=== PATIENT | female | born 1955 | race Caucasian/White ===

== ENCOUNTER 2019-03-11 10:53 | Inpatient (IN) ==
--- NOTE | 2019-03-11 11:07 | Emergency Department Note ---
ED Disposition Clinical Impression: Acute appendicitis Qualifiers: Acute appendicitis type: with localized peritonitis Appendicitis gangrene presence: without gangrene Appendicitis perforation presence: without perforation Appendicitis abscess presence: without abscess Qualified Code(s): K35.30 - Acute appendicitis with localized peritonitis, without perforation or gangrene Disposition: Admitted as Observation Condition on Discharge: Fair (Stable) Referrals: Ata Castaneda MD [Primary Care Provider] - Time of Disposition: 12:23 - Critical Care Critical Care Time: No Attestation: On , the high probability of a clinically significant, sudden or life threatening deterioration of the following system(s) required my full and direct attention, intervention and personal management. The time I documented below is in addition to time spent performing reported procedures but includes the following listed in this critical care notation. Medical Decision Making - Medical Records Medical records reviewed: Yes: I reviewed the patient's medical records. - [place] Inquiry Pt receiving controlled substance: No [place] was queried for this patient: No Vital Signs: 03/11/19 11:07 Temperature 97.6 F Temperature Source Oral Pulse Rate [Left Radial] 60 Respiratory Rate 20 Blood Pressure [Right Arm] 155/78 H Blood Pressure Mean [Right Arm] 103 Blood Pressure Source [Right Arm] Automatic Cuff Blood Pressure Position [Right Arm] Sitting 02 Sat by Pulse Oximetry 94 L Oxygen Delivery Method Room Air - Lab Data Lab results reviewed: Yes: I reviewed the patient's lab results. Lab Results 03/11/19 11:11: WBC 11.0 H, RBC 5.03, Hgb 14.3, Hct 44.5, MCV 88.5, MCH 28.5, MCHC 32.2, RDW 14.1, Plt Count 288, MPV 7.0 L, Neut % (Auto) 83.4 H, Lymph % (Auto) 12.1, [place] % (Auto) 4.0, Eos % (Auto) 0.4, Baso % (Auto) 0.1, Neut # (Auto) 9.2 H, Lymph # (Auto) 1.3, [place] # (Auto) 0.4, Eos # (Auto) 0.1, Baso # (Auto) 0.0 03/11/19 11:11: Sodium 138, Potassium 3.6, Chloride 100, Carbon Dioxide 29, Anion Gap 12.6, BUN 12, Creatinine 0.73, Estimated Creat Clear 88, Estimated GFR 80, Est GFR ( Amer) 97, Glucose 120 H, Calcium 9.5, Total Bilirubin 0.7, AST 20, ALT 21, Alkaline Phosphatase 132 H, Total Protein 7.9, Albumin 3.8, Globulin 4.1 H, Albumin/Globulin Ratio 0.9 L, Lipase 92 Result diagrams: 03/11/19 11:11 03/11/19 11:11 Orders (Tests/Meds): ED MEDICATIONS Generic Name Dose Route Start Last Admin Trade Name Freq PRN Reason Stop Dose Admin Sodium Chloride 1,000 mls @ 500 mls/hr 03/11/19 11:15 03/11/19 11:23 Sod Chlor 0.9% 1000ml Bag IV 04/10/19 11:14 500 mls/hr .Q2H SAY Administration Discontinued Medications Generic Name Dose Route Start Last Admin Trade Name Freq PRN Reason Stop Dose Admin Ioversol 75 ml 03/11/19 11:56 03/11/19 11:57 Rad-Optiray 350 100ml Vial IV 03/11/19 11:57 75 ml ONCE ONE Administration Protocol Ondansetron HCl 4 mg 03/11/19 11:14 03/11/19 11:23 Zofran 4mg/2ml Vial IV 03/11/19 11:15 4 mg ONCE ONE Administration Sodium Chloride 10 ml 03/11/19 11:56 03/11/19 11:57 Rad-Saline Flush 10ml Syringe IV 03/11/19 11:57 10 ml ONCE ONE Administration ORDERS Category Date Time Status Lactic Acid Stat Lab 03/11/19 11:08 Ordered Urinalysis and Microscopic Stat Lab 03/11/19 11:07 Ordered - CT Data CT Scan: Abdomen, Pelvis Time Received: 12:13 Findings Narrative: [facility] [id number] [place] [address] [place] Scan Report Signed Patient: Shu Rosa MR#: [id number] : 1955 Acct:[id number] Age/Sex: 63 / F ADM Date: 03/11/19 Loc: ER Attending Dr: Ordering Physician: Donovan Harper III, DO Date of Service: 03/11/19 Procedure(s): CT abdomen pelvis w con Accession Number(s): [id number] cc: Ata Castaneda MD; Fernando Brar MD~ PROCEDURE: CT ABDOMEN PELVIS W CON CLINICAL HISTORY: RLQ pain Right lower quadrant pain COMPARISON: No exams were available for comparison TECHNIQUE: 75 mL Optiray 350 Axial images obtained with sagittal and coronal reformats. All CT scans at the facility use one or more dose reduction, viz: automated exposure control, ma/kV adjustment per patient size (including targeted exams where dose is matched to indication, i.e. head), or iterative reconstruction technique. FINDINGS: Lung bases are clear. The liver, spleen, adrenal glands, pancreas, and kidneys have an unremarkable appearance. No radiopaque gallstones are evident. Gallbladder does not appear distended. There is an appendicoliths at the base of the appendix which measures 8 mm in diameter. There is distention of the appendix distal to the appendicoliths with the appendix measuring up to 11 mm in diameter with minimal stranding of the periappendiceal fat. There is fluid within the appendiceal lumen. These findings are consistent with appendicitis. No abscess or perforation is evident. The appendix is retrocecal. No pelvic mass or abnormal fluid collection evident within the pelvis. No acute bony anomalies are evident. 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 The degree of stenosis is difficult to evaluate. Small umbilical hernia is noted containing fat IMPRESSION: 1. 8 mm appendicoliths at the base of the appendix with dilatation of a fluid-filled appendix distal to this area consistent with appendicitis without evidence of abscess or perforation 2. 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 Dictated by: Fernando Brar MD 03/11/2019 12:14 Electronically signed by Fernando Brar MD in [place] 03/11/2019 12:14 Medical Decision Narrative: 12:20 Pt evaluated. All labs reviewed. WBC mildly elevated. CT report discussed with telephone with radiologist Dr. Brar and pt appears to have acute appendicitis with 11 mm dilated appendix, 8 mm appendicolith. No abscess. Case discussed with surgeon Dr. Fuentes who will contact OR staff to take pt to OR for his continued care. Results of work up, diagnosis and care plan discussed with pt and . They understand, agree and all questions answered. Abdominal Pain HPI - General Stated Complaint: pain in lower right abdomen Time Seen by Provider: 03/11/19 11:06 Source of Information: Patient - History of Present Illness HPI narrative: Pt is here in the ER from home via POV with c/o RLQ abdominal pain. Onset late last night while sleeping. Pt states she has been nauseated and vomited twice. No diarrhea or constipation. No fever. No GI disease history. Last colonoscopy was 10 years ago and was normal. No injury. MD complaint: abdominal pain - Related Data Home Medications Medication Instructions Recorded Confirmed Calcium Citrate 1,200 mg PO DAILY 03/11/19 03/11/19 Cholecalciferol (Vitamin D3) 1,000 unit PO DAILY 03/11/19 03/11/19 [Vitamin D3 1,000 Unit Cap] Glucosamine/MSM/Chondroitin A 1 each PO DAILY 03/11/19 03/11/19 [Glucosamine Chondroit MSM Tab] hydroCHLOROthiazide [HCTZ 25mg 25 mg PO DAILY 03/11/19 03/11/19 tab] Allergies Allergy/AdvReac Type Severity Reaction Status Date / Time NO KNOWN ALLERGIES Allergy Uncoded 06/13/17 14:50 [facility] History - Hepatitis A Screen Attestation statement:: This patient has been screened for Hepatitis A risk factors. I have reviewed the patient's past medical history: Yes ROS Obtained: Yes All systems reviewed & no additional complaints - Constitutional Constitutional: Reports system reviewed and no additional complaints, except as docu - Eyes Eyes: Reports system reviewed and no additional complaints, except as docu - ENT Ears, Nose, Mouth, and Throat: Reports system reviewed and no additional compla ints, except as docu - Cardiovascular Cardiovascular: Reports system reviewed and no additional complaints, except as docu - Respiratory Respiratory: Yes system reviewed and no additional complaints, except as docu - Gastrointestinal Gastrointestingal: Reports: system reviewed and no additional complaints, except as docu, as per HPI, abdominal pain (RLQ), nausea, vomiting (twice last night.). Denies: constipation, diarrhea - Genitourinary Female Genitourinary: Reports system reviewed and no additional complaints, except as docu - Musculoskeletal Musculoskeletal: Reports system reviewed and no additional complaints, except as docu - Integumentary/Breasts Skin/Breast: Reports system reviewed and no additional complaints, except as docu - Neurologic Neurologic: Reports system reviewed and no additional complaints, except as docu - Endocrine Endocrine: Reports system reviewed and no additional complaints, except as docu - Hematologic/Lymphatic Henatologic/Lymphatic: Reports system reviewed and no additional complaints, except as docu - Allergic/Immunologic Allergic/Immunologic: Reports system reviewed and no additional complaints, except as docu Physical Exam - General General appearance: alert, in no apparent distress - Head Head exam: atraumatic, normocephalic, normal inspection - Eye Eye exam: Present: normal appearance, PERRL, EOMI - ENT ENT exam: Present: mucous membranes moist - Neck Neck exam: Present: trachea midline - Chest Chest inspection: Present: normal inspection, symmetric chest wall rise - Respiratory Respiratory exam: Present: normal lung sounds bilaterally. Absent: respiratory distress - Cardiovascular Cardiovascular exam: Present: regular rate, normal heart sounds. Absent: systolic murmur, diastolic murmur - Abdominal Exam Abdominal exam: Present: soft, tenderness (RLQ), rebound (RLQ), hypoactive bowel sounds, tenderness at McBurney's Point. Absent: rigidity, Guerra's sign Abdominal tenderness: Present: RLQ - Extremities Exam Extremities exam: Present: normal inspection, full ROM - Back Exam Back exam: Present: normal inspection. Absent: tenderness, CVA tenderness (R), CVA tenderness (L) - Neurological Exam Neurological exam: Present: alert, oriented X3, CN II-XII intact - Psychiatric Psychiatric exam: Present: normal affect, normal mood - Skin Skin exam: Present: warm, dry, intact, normal color. Absent: rash
[2019-03-11 11:21] LABS: Basophils % 0.1 % (0.1-2.0); Eosinophils # 0.1 K/mm3 (0.0-0.4); Eosinophils % 0.4 % (0.1-12.0); Hematocrit 44.5 % (37.0-47.0); Hemoglobin 14.3 g/dL (12.2-16.2); Lymphocytes # 1.3 K/mm3 (0.7-4.5); Lymphocytes % 12.1 % (10-50); Mean Corpuscular HGB Conc 32.2 g/dL (31.8-35.4); Mean Corpuscular Volume 88.5 fl (81-99); Monocytes # 0.4 K/mm3 (0.1-1.0); Neutrophils # 9.2 K/mm3 (1.8-7.8); Neutrophils % 83.4 % (37.0-80.0); Platelet Count 288 K/mm3 (142-424); Red Blood Count 5.03 M/mm3 (4.20-5.40); Red Cell Distribution Width 14.1 % (11.5-17.5)
[2019-03-11 11:32] LABS: Albumin Level 3.8 gm/dL (3.4-5.0); Albumin/Globulin Ratio 0.9 (1.1-1.8); Anion Gap 12.6 mEq/L (5-15); Bilirubin,Total 0.7 mg/dL (0.2-1.0); Calcium 9.5 mg/dL (8.5-10.1); Globulin 4.1 gm/dl (1.3-3.2); Total Protein,Serum 7.9 gm/dL (6.4-8.2)
--- NOTE | 2019-03-11 12:52 | Progress Note ---
[facility] Anesthesia Checklist - Patient Identification Patient Identification: Arm Band, Verbal (Name & ) - Structural Data Admitted From: Home Planned Operative Procedure/s: Laparoscopic appendectomy Consent for Planned Operative Procedure(s) Verified: Yes Verified Documents: Surgical Consent, History and Physical - NPO Status Verified Time NPO: 09:00 (black coffee) - Chart Verification Results Verified: CBC, BMP - Additional verifications Anesthesia Reactions: No - Airway Assessment C-Spine Mobility Assessed: Yes TMJ Mobility Assessed: Yes Dentition: Good Dentition - Neurological Assessment Level of Consciousness: Awake, Alert, Appropriate, Follows Commands Hx Seizures: No Numbness or tingling in extremities: No - Anesthesia Plan Anesthesia Risk discussed: Yes Anesthesia Plan: Verified ASA Class: II Anesthesia Type: General [facility] History I have reviewed the patient's past medical history: Yes Medical History: Reports:: Cancer (Breast CA), Hypertension Denies:: Diabetes Mellitus Type 1, Diabetes Mellitus Type 2 *Have you ever received a pneumonia vaccine?: No *Have you received a flu vaccine this season?: No Comment:: obesity Anesthesia experience/problems:: No complications Laterality Cases: Left: Mastectomy, Right: Arthroscopy Shoulder Other Surgeries: Yes: (x2) Amputation: No Fractures: No - *Social History Smoking Status: Never smoker Alcohol Intake: current Alcohol Intake Frequency:: 0-2 drinks per day Substance Use Type: denies use *Occupational Status:: retired *Travel in the last 8 weeks: None Family Hx:: Other (NA)
--- NOTE | 2019-03-11 14:20 | Operative Note ---
Date of procedure: 03/11/19 Pre-op Diagnosis:: Appendicitis Post-op Diagnosis:: Suppurative appendicitis Procedure performed:: Laparoscopic appendectomy Surgeon:: Dayron Fuentes MD FISH CHECKER:: Jeffry Koroma Anesthesia: DAVID Estimated blood loss (mL): 15 Operative findings:: Severe inflammation with suppurative changes No sign of definitive perforation Operative note:: After informed consent was obtained the patient was taken to the operating room and placed in the supine position. General anesthesia was induced and her abd omen was prepped and draped in a sterile fashion. After infiltration local anesthetic a supraumbilical incision was made. A Veress needle was placed in position. The abdomen was insufflated. A 12 mm optical trocar was placed in position. Under direct visualization a 5 mm trocar was placed in the suprapubic position and an additional 5 mm trocar was placed in the left lower quadrant. The appendix was carefully elevated. Severe inflammation with surrounding suppurative changes were noted. No obvious perforation was seen. A window was made in the mesoappendix and and Endopath Flex 45 stapler was utilized to transect the appendix. The mesoappendix was taken down with harmonic missy. The appendix was placed in a retrieval bag and removed through the supraumbilical trocar site. The right lower quadrant was thoroughly irrigated. No active bleeding or sign of injury was noted. The staple margin appeared to be intact with no sign of bleeding or complication. Pneumoperitoneum was released as the trocars were removed. Fascia at the supraumbilical trocar site was reapproximated with interrupted 0 Ethibond. All wounds were irrigated and skin was closed with interrupted 4-0 Monocryl. Dressings were applied and the patient was transferred to recovery in stable condition. Condition: stable Disposition: PACU Specimens:: Appendix Complications:: No immediate
--- NOTE | 2019-03-11 14:24 | Progress Note ---
[facility] Anesthesia Record Part I Intake, IV Amount: 900 Estimated blood loss (mL): 20 Urine output (mL): 500 Blood Products used (#): none Blood Pressure: 161/96 SaO2: 96 Pulse Rate: 81 Respiratory Rate: 14 Temperature: 97.1 F Patient is:: Awake, Nasal O2, Stable Stable to PACU at:: 14:20
--- NOTE | 2019-03-11 14:24 | Progress Note ---
[facility] Anesthesia Record Part II Discharge Time: 14:50 Destination: Medical Surgical Department PACU nurse assessment reviewed?: Yes Patient Condition:: Good Anesthesia Complications:: None Swallowing reflex intact?: Yes Cyanosis?: No
[2019-03-12 07:20] LABS: Eosinophils % 0.2 % (0.1-12.0); Hematocrit 39.2 % (37.0-47.0); Lymphocytes # 1.1 K/mm3 (0.7-4.5); Lymphocytes % 10.1 % (10-50); Mean Corpuscular HGB Conc 31.6 g/dL (31.8-35.4); Mean Corpuscular Volume 89.6 fl (81-99); Mean Platelet Volume 7.3 fl (7.4-10.4); Monocytes # 0.6 K/mm3 (0.1-1.0); Neutrophils # 9.4 K/mm3 (1.8-7.8); Neutrophils % 84.7 % (37.0-80.0); Platelet Count 247 K/mm3 (142-424); Red Blood Count 4.37 M/mm3 (4.20-5.40); Red Cell Distribution Width 14.1 % (11.5-17.5); White Blood Count 11.1 K/mm3 (4.8-10.8)
[2019-03-12 07:22] LABS: Anion Gap 10.5 mEq/L (5-15); Calcium 8.7 mg/dL (8.5-10.1)
--- NOTE | 2019-03-12 07:32 | Pharmacy Consult Notes ---
[facility] Pharmacy VTE Monitoring - Patient Demographics Admission date: 03/11/19 Report Date: 03/12/19 Time: 07:32 Allergies/Adverse Reactions: Patient Allergies No Known Allergies Allergy (Verified 03/11/19 15:22) Height: 1.68 m Weight: 99.155 kg Patient Problems: Current Active Problems Acute appendicitis (Acute) - VTE Risk Labs: VTE Related Lab Results Hgb 14.3 g/dL (12.2-16.2) 03/11/19 11:11 Hct 44.5 % (37.0-47.0) 03/11/19 11:11 Plt Count 288 K/mm3 (142-424) 03/11/19 11:11 BUN 9 mg/dL (7-18) 03/12/19 06:26 Creatinine 0.73 mg/dL (0.55-1.02) 03/12/19 06:26 Estimated Creat Clear 89 mL/min (50-200) 03/12/19 06:26 VTE Score: 5 VTE Risk Level: Low Risk - Prophylaxis VTE Prophylaxis Ordered?: Yes Types of VTE Prophylaxis: IPCS Thigh High Location of Applied Device: Bilateral Lower Extremeties - VTE Diagnosis Confirmed Treatment or plan recommended: Continue Current Treatment
[2019-03-12 07:50] LABS: Hemoglobin 12.5 g/dL (12.2-16.2)
--- NOTE | 2019-03-12 08:32 | Progress Note ---
Subjective Patient reports: feels better Exam Vital signs and Labs for Last 24 Hours: Temp Pulse Resp BP Pulse Ox 97.6 F 52 L 16 105/54 L 95 03/12/19 04:00 03/12/19 04:00 03/12/19 04:00 03/12/19 04:00 03/12/19 04:00 Laboratory Results - last 24 hr 03/11/19 11:11: WBC 11.0 H, RBC 5.03, Hgb 14.3, Hct 44.5, MCV 88.5, MCH 28.5, MCHC 32.2, RDW 14.1, Plt Count 288, MPV 7.0 L, Neut % (Auto) 83.4 H, Lymph % (A uto) 12.1, [place] % (Auto) 4.0, Eos % (Auto) 0.4, Baso % (Auto) 0.1, Neut # (Auto) 9.2 H, Lymph # (Auto) 1.3, [place] # (Auto) 0.4, Eos # (Auto) 0.1, Baso # (Auto) 0.0 03/11/19 11:11: Sodium 138, Potassium 3.6, Chloride 100, Carbon Dioxide 29, Anion Gap 12.6, BUN 12, Creatinine 0.73, Estimated Creat Clear 88, Estimated GFR 80, Est GFR ( Amer) 97, Glucose 120 H, Calcium 9.5, Total Bilirubin 0.7, AST 20, ALT 21, Alkaline Phosphatase 132 H, Total Protein 7.9, Albumin 3.8, Globulin 4.1 H, Albumin/Globulin Ratio 0.9 L, Lipase 92 03/11/19 13:10: Urine Color Yellow, Urine Appearance Clear, Urine pH 7.0, Ur Specific [place] 1.010, Urine Protein Negative, Urine Glucose (UA) Negative, Urine Ketones Trace, Urine Blood 1+, Urine Nitrate Negative, Urine Bilirubin Negative, Urine Urobilinogen 0.2, Ur Leukocyte Esterase Negative, Urine RBC 3-5, Urine WBC Occasional, Ur Squamous Epith Cells 3-5, Urine Bacteria Trace 03/11/19 14:51: Lactate 1.0 03/12/19 06:26: WBC 11.1 H, RBC 4.37, Hgb 12.5 D, Hct 39.2, MCV 89.6, MCH 28.3, MCHC 31.6 L, RDW 14.1, Plt Count 247, MPV 7.3 L, Neut % (Auto) 84.7 H, Lymph % (Auto) 10.1, [place] % (Auto) 5.0, Eos % (Auto) 0.2, Baso % (Auto) 0.0 L, Neut # (Auto) 9.4 H, Lymph # (Auto) 1.1, [place] # (Auto) 0.6, Eos # (Auto) 0.0, Baso # (Auto) 0.0 03/12/19 06:26: Sodium 138, Potassium 3.5, Chloride 102, Carbon Dioxide 29, Anion Gap 10.5, BUN 9, Creatinine 0.73, Estimated Creat Clear 89, Estimated GFR 80, Est GFR ( Amer) 97, Glucose 124 H, Calcium 8.7 I & O for Last 24 hours: Intake & Output 03/09/19 03/10/19 03/11/19 03/12/19 11:59 11:59 11:59 11:59 Intake Total 2071 Balance 2071 Weight 215 lb 5.998 oz 218 lb 9.6 oz - Constitutional no acute distress - *Routine Cardiovascular Exam Present: RRR - *Routine Abdominal Exam Present: soft Comments: Dressings in place. No spreading cellulitis. Progress Note: A&P (1) Suppurative appendicitis Status: Acute Assessment and plan: Overall, doing well status post laparoscopic appendectomy for suppurative appendicitis. Continue IV antibiotics for now Advance diet Likely discharge home tomorrow with completion of a short course of antibiotics Current Visit: Yes
[2019-03-13 07:13] LABS: Basophils % 0.3 % (0.1-2.0); Eosinophils # 0.1 K/mm3 (0.0-0.4); Eosinophils % 1.1 % (0.1-12.0); Hematocrit 38.3 % (37.0-47.0); Hemoglobin 11.8 g/dL (12.2-16.2); Lymphocytes # 2.8 K/mm3 (0.7-4.5); Lymphocytes % 33.2 % (10-50); Mean Corpuscular HGB Conc 30.9 g/dL (31.8-35.4); Mean Corpuscular Volume 91.6 fl (81-99); Mean Platelet Volume 7.1 fl (7.4-10.4); Monocytes # 0.5 K/mm3 (0.1-1.0); Monocytes % 5.6 % (1.7-9.3); Neutrophils # 5.1 K/mm3 (1.8-7.8); Neutrophils % 59.9 % (37.0-80.0); Platelet Count 217 K/mm3 (142-424); Red Blood Count 4.18 M/mm3 (4.20-5.40); Red Cell Distribution Width 14.4 % (11.5-17.5); White Blood Count 8.5 K/mm3 (4.8-10.8)
--- NOTE | 2019-03-13 08:28 | Progress Note ---
Subjective Patient reports: feels better Exam Vital signs and Labs for Last 24 Hours: Temp Pulse Resp BP Pulse Ox 97.9 F 52 L 18 126/63 98 03/13/19 08:00 03/13/19 08:00 03/13/19 08:00 03/13/19 08:00 03/13/19 08:00 Laboratory Results - last 24 hr 03/13/19 06:40: WBC 8.5, RBC 4.18 L, Hgb 11.8 L, Hct 38.3, MCV 91.6, MCH 28.3, MCHC 30.9 L, RDW 14.4, Plt Count 217, MPV 7.1 L, Neut % (Auto) 59.9, Lymph % (Auto) 33.2, [place] % (Auto) 5.6, Eos % (Auto) 1.1, Baso % (Auto) 0.3, Neut # (Auto) 5.1, Lymph # (Auto) 2.8, [place] # (Auto) 0.5, Eos # (Auto) 0.1, Baso # (Auto) 0.0 I & O for Last 24 hours: Intake & Output 03/10/19 03/11/19 03/12/19 03/13/19 11:59 11:59 11:59 11:59 Intake Total 2071 3209 / 3209 Balance 2071 3209 / 3209 Weight 215 lb 5.998 oz 218 lb 9.6 oz 218 lb 9 oz - Constitutional no acute distress - *Routine Respiratory Exam Absent: respiratory distress - *Routine Cardiovascular Exam Present: RRR - *Routine Abdominal Exam Present: soft Comments: Incisions clean, dry, and intact. No erythema. Progress Note: A&P (1) Suppurative appendicitis Status: Acute Assessment and plan: Overall, doing well status post laparoscopic appendectomy. Discharge home with outpatient follow-up Complete short course of antibiotics secondary to suppurative changes noted intraoperatively Current Visit: Yes
--- NOTE | 2019-03-13 08:34 | Discharge Summary ---
General - General Admission date:: 03/11/19 Discharge date: 03/13/19 HPI HPI: This is a 63-year-old female who presented with right lower quadrant abdominal pain. Evaluation in emergency department included a CT scan that showed changes consistent with appendicitis. The surgical service was consulted for evaluation and management. Hospital Course Hospital Course: The patient underwent laparoscopic appendectomy. Please see operative report for detail. Suppurative changes were noted. No obvious perforation was seen. Postoperatively, she was admitted for ongoing IV antibiotics and serial abdominal exams secondary to the suppurative nature of her appendicitis. She convalesced well and remained afebrile with stable normal vital signs. On the morning of postoperative day 3 she was deemed appropriate for discharge home with close outpatient follow-up. A short course of Augmentin was ordered secondary to the suppurative nature of her appendicitis. Objective Vital signs: Temp Pulse Resp BP Pulse Ox 97.9 F 52 L 18 126/63 98 03/13/19 08:00 03/13/19 08:00 03/13/19 08:00 03/13/19 08:00 03/13/19 08:00 no acute distress - *Routine HEENT Exam Head: Present: normocephalic, atraumatic - *Routine Neck Exam Present: full ROM - Routine Chest/Breast/Axilla Exam Chest wall: Absent: tenderness - *Routine Respiratory Exam Absent: respiratory distress - *Routine Cardiovascular Exam Present: RRR - *Routine Abdominal Exam Present: soft - *Routine Extremities Exam Present: full ROM - Routine Back/Spine/Pelvis Exam Back/Spine: Present: full ROM - *Routine Skin Exam Absent: cyanosis, erythema - *Routine Neurological Exam Present: alert, oriented X3 - Routine Psychiatric Exam Present: normal affect Results Labs on day of discharge: Labs from last 24 hours 03/13/19 06:40 WBC 8.5 RBC 4.18 L Hgb 11.8 L Hct 38.3 MCV 91.6 MCH 28.3 MCHC 30.9 L RDW 14.4 Plt Count 217 MPV 7.1 L Neut % (Auto) 59.9 Lymph % (Auto) 33.2 [place] % (Auto) 5.6 Eos % (Auto) 1.1 Baso % (Auto) 0.3 Neut # (Auto) 5.1 Lymph # (Auto) 2.8 [place] # (Auto) 0.5 Eos # (Auto) 0.1 Baso # (Auto) 0.0 DS: Diagnosis - Discharge Diagnosis (1) Suppurative appendicitis Status: Acute Discharge Plan - Patient Discharge Instructions ACTIVITY: No heavy lifting DIET: advance to your usual diet Patient Instructions: Appendicitis, DI for an Appendectomy, DI for Surgical Site Infection, Appendectomy -- Laparoscopic Surgery - Follow up Plan Follow up with: Ata Castaneda MD [Primary Care Provider] - Dayron Fuentes MD [Staff Physician] - (1-2 weeks) Disposition: Home, Self-Long Term Medications: Home Medications Medication Instructions Recorded Confirmed Type Calcium Citrate 600 mg PO BID 03/11/19 03/11/19 History Cholecalciferol (Vitamin D3) 1,000 unit PO DAILY 03/11/19 03/11/19 History [Vitamin D3 1,000 Unit Cap] Glucosamine/MSM/Chondroitin A 0.5 tab PO BID 03/11/19 03/11/19 History [Glucosamine Chondroit MSM Tab] hydroCHLOROthiazide [HCTZ 25mg 25 mg PO DAILY 03/11/19 03/11/19 History tab] Amoxicillin/Potassium Clav 1 tab PO Q12H #14 tab 03/13/19 Rx [Augmentin 875-125 Tablet] Prescriptions/Medication Reconciliation: New Amoxicillin/Potassium Clav [Augmentin 875-125 Tablet] 1 tab PO Q12H #14 tab Continued Cholecalciferol (Vitamin D3) [Vitamin D3 1,000 Unit Cap] 1,000 unit PO DAILY hydroCHLOROthiazide [HCTZ 25mg tab] 25 mg PO DAILY Glucosamine/MSM/Chondroitin A [Glucosamine Chondroit MSM Tab] 0.5 tab PO BID Calcium Citrate 600 mg PO BID - Problem Reconciliation Problems Reviewed?: Yes
== END 2019-03-13 09:49 | disposition home or self-care (01) | DRG 343 ==
LOC: ER 10:53 → 2ND 13:04 → OR 13:04 → OBSVTOIN 15:22
PROVIDERS: ADMIT Surgery; ATTEND Surgery
DX: K35.890 Other acute appendicitis without perforation or gangrene
CPT/HCPCS: 36415; 74177; 80048; 80053; 81001; 83605; 83690; 85025; 96365; 96375; 99284; J0330; J2405; J2543; J2710; Q9967

== ENCOUNTER → 2019-05-07 14:41 | Outpatient (POV) | payer OTHER, SELFPAY | PROVIDERS: Visit Provider Dermatology | DX: Z00.00 Encounter for general adult medical examination without abnormal findings (principal) ==

== ENCOUNTER → 2020-01-28 10:49 | Outpatient (POV) | payer MEDICARE, OTHER, SELFPAY | PROVIDERS: PCP Internal Medicine Adolescent Medicine; Visit Provider Dermatology | DX: Z00.00 Encounter for general adult medical examination without abnormal findings (principal) ==

== ENCOUNTER 2020-02-03 11:00 | Outpatient (RCR) | payer MEDICARE, OTHER, SELFPAY ==
--- NOTE | 2020-01-13 16:41 | HMH.PTOPWND ---
Rehab Outpt Wound Evaluation Rehab OP Wound Evaluation Start: 01/06/20 17:46 Freq: Status: Active Protocol: Document 01/13/20 16:35 TENZIN (Rec: 01/13/20 16:40 PHORNE [id number]) Electronically Signed By Alok Ayala, PT 01/13/20 16:35 Subjective/History History History Pt is 64 yowf who presents with c/o B LE edema, L worse than R, with unknown itchy rash on B legs, arms, and abdomen. She reports she thinks her rash is due to adverse reaction to lasix, but has no definitive diagnosis at this time. She reports no pain with the edema and only mild tenderness to palpation. Subjective Subjective Pt with no c/o pain this date. 2+ pitting edema to L lower leg noted. Lymphedema Eval Classification of Lymphedema Secondary Lymphedema Yes Stemmer's sign Stemmer's Sign no Stage of Lymphedema Lymphedema stages Stage I (Pitting edema, reduces w/ elevation, no fibrosis) Skin Changes Dry Skin Yes Redness Yes Blisters Yes Wounds Yes Discoloration of Skin Yes Other Changes Yes Affected Extremities Areas Affected by Lymphedema/Edema Right Lower Extremity,Left Lower Extremity Manual Lymphatic Drainage Treatment Area MLD Treatment Area Right Lower Extremity,Left Lower Extremity Wound Problems/Impairments Impairments Problems/Impairmments Palpation Tenderness,Increased Edema,Lymphedema Present, Wound Care Needs,Subjective C/ O Pain,Impaired Self Care/Self Management Prognosis Rehab Potential Good Clinical Impression Consistent with Diagnosis Yes Short Term Goals Number of Weeks 4 Decreased Palpation Tenderness Yes: to min Decrease Edema Yes Patient to Understand Lymphedema Yes Treatment and Exercises Decrease Girth Measurments by (cm) Yes: by 10 cm Hot Header Operator Goals Number of Weeks 8 Decreased Palpation Tenderness Yes: to none Decrease Lymphedema Yes Patient to be Ind w/ HEP Yes Patient to be Ind w/ [place] Yes Compression Garments Patient to Adhere Lymphedema Pr
== END 2020-02-03 11:05 | disposition home or self-care (01) ==
LOC: PT 11:00
PROVIDERS: Visit Provider Internal Medicine Adolescent Medicine
DX: I89.0 Lymphedema, not elsewhere classified (principal)
CPT/HCPCS: 97140; 97162; 97760

== ENCOUNTER → 2020-02-10 10:43 | Outpatient (CLI) | payer MEDICARE, OTHER, SELFPAY ==
--- NOTE | 2020-02-10 10:48 | XR_ITS ---
PROCEDURE: XR FOOT WT BEARING RT 3V CLINICAL INDICATION: pain COMPARISON: No exams were available for comparison FINDINGS: No fracture or dislocation. No lytic or blastic change. There is normal mineralization. The joint spaces are well-preserved. No significant degenerative/arthritic changes. No erosive changes evident. Other findings:There is a small calcaneal spur incidentally noted. IMPRESSION: No acute findings. Dictated by: Fernando Brar MD 02/10/2020 12:59 Fernando Brar MD in [place] 02/10/2020 12:59
--- NOTE | 2020-02-10 10:48 | XR_ITS ---
PROCEDURE: XR FOOT WT BEARING LT 3V CLINICAL INDICATION: pain COMPARISON: No exams were available for comparison FINDINGS: No fracture or dislocation. No lytic or blastic change. There is normal mineralization. There is pes planus with osteoarthritic change at the talonavicular joint with bony hypertrophy dorsally. Other findings:None. 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
--- NOTE | 2020-02-10 10:48 | XR_ITS ---
PROCEDURE: XR ANKLE WT BEARING RT MIN 3V CLINICAL INDICATION: pain COMPARISON: No exams were available for comparison FINDINGS: No fracture, dislocation, lytic change, or blastic change evident. No significant degenerative change IMPRESSION: No acute findings. Dictated by: Fernando Brar MD 02/10/2020 12:57 Fernando Brar MD in [place] 02/10/2020 12:57
--- NOTE | 2020-02-10 10:48 | XR_ITS ---
PROCEDURE: XR ANKLE WT BEARING LT MIN 3V CLINICAL INDICATION: pain COMPARISON: No exams were available for comparison FINDINGS: No fracture or dislocation is evident. There is a lucent defect with sclerotic margins involving the sub articular region the talar dome medially measuring 6 mm. There is some hyperostosis of the distal fibula medially at the interosseous ligament region. IMPRESSION: Lucency of the talar dome medially which may be due to an osteochondral defect otherwise negative Dictated by: Fernando Brar MD 02/10/2020 12:58 Fernando Brar MD in [place] 02/10/2020 12:58
== END ==
PROVIDERS: PCP Internal Medicine Adolescent Medicine; Visit Provider Podiatrist
DX: M79.672 Pain in left foot (principal); M79.671 Pain in right foot; M25.572 Pain in left ankle and joints of left foot; M25.571 Pain in right ankle and joints of right foot
CPT/HCPCS: 73610; 73630

== ENCOUNTER → 2020-03-05 09:56 | Outpatient (CLI) | payer MEDICARE, OTHER, SELFPAY ==
[2020-03-05 10:43] LABS: Basophils % 0.4 % (0.1-2.0); Eosinophils # 0.2 K/mm3 (0.0-0.4); Eosinophils % 3.4 % (0.1-12.0); Hematocrit 42.9 % (37.0-47.0); Hemoglobin 14.2 g/dL (12.2-16.2); Lymphocytes # 1.7 K/mm3 (0.7-4.5); Lymphocytes % 23.8 % (10-50); Mean Corpuscular HGB Conc 33.1 g/dL (31.8-35.4); Mean Corpuscular Hemoglobin 29.5 pg (27.0-31.2); Mean Corpuscular Volume 89.4 fl (81-99); Mean Platelet Volume 7.6 fl (7.4-10.4); Monocytes # 0.3 K/mm3 (0.1-1.0); Monocytes % 4.2 % (1.7-9.3); Neutrophils # 4.8 K/mm3 (1.8-7.8); Neutrophils % 68.2 % (37.0-80.0); Platelet Count 274 K/mm3 (142-424); Red Cell Distribution Width 13.9 % (11.5-17.5)
[2020-03-05 11:04] LABS: Chloride 103 mmol/L (98-107); Potassium 4.1 mmoL/L (3.5-5.1); Sodium 140 mmol/L (136-145)
[2020-03-05 11:07] LABS: Alanine Aminotransferase 18 U/L (12-78); Albumin Level 3.9 g/dl (3.5-5.0); Albumin/Globulin Ratio 1.3 (1.1-1.8); Alkaline Phosphatase 118 U/L (38-126); Anion Gap 12.1 mEq/L (5-15); Aspartate Amino Transferase 29 U/L (14-36); Bilirubin,Total 0.6 mg/dl (0.2-1.3); Blood Urea Nitrogen 12 mg/dl (7-17); Carbon Dioxide 29 mmol/L (22.0-30.0); Estimated Glomerular Filt Rate 100 ml/min (>60); GFR (African American) 121 ML/MIN (>60); Globulin 3.1 g/dL (1.3-3.2)
[2020-03-05 11:08] LABS: Calcium 9.7 mg/dl (8.4-10.2); Glucose 118 mg/dl (74-100)
[2020-03-05 11:37] LABS: Thyroid Stimulating Hormone 1.47 uIU/mL (0.465-4.68)
== END ==
PROVIDERS: Visit Provider Internal Medicine Adolescent Medicine
DX: I10 Essential (primary) hypertension (principal); Z79.891 Long term (current) use of opiate analgesic
CPT/HCPCS: 36415; 80053; 83036; 84443; 85025

== ENCOUNTER 2020-03-05 11:00 | Outpatient (RCR) | payer MEDICARE, OTHER, SELFPAY ==
--- NOTE | 2020-01-30 15:57 | HMH.PTOPWND ---
Rehab Outpt Wound Evaluation Rehab OP Wound Evaluation Start: 01/30/20 15:50 Freq: Status: Active Protocol: Document 01/30/20 15:50 TENZIN (Rec: 01/30/20 15:56 PHORNE [id number]) Electronically Signed By Alok Ayala, PT 01/30/20 15:50 Subjective/History History History Pt is 65 yowf who presents with c/o increased R UE edema x ~ 1 yr. She reports no c/o pain, but intermittent feeling of pins and needles. SHe has significant PMH of B mastectomy with B SLNB, L lumpectomy, R humerus fx with IMN, , and lap APPY. She has been treated for LE edema with good results thus far. Subjective Subjective Pt with no current c/o pain. Lymphedema Eval Classification of Lymphedema Secondary Lymphedema Yes: multiple surgeries Stemmer's sign Stemmer's Sign no Stage of Lymphedema Lymphedema stages Stage II (Pitting edema, increased fibrosis w/ decreased pitting) Skin Changes Dry Skin Yes Redness Yes Other Changes Yes Pain Scale Pain Scale (0-10) 0 Manual Lymphatic Drainage Treatment Area MLD Treatment Area Right Upper Extremity,Abdomen, Right Axilla Wound Problems/Impairments Impairments Problems/Impairmments Impaired Endurance,Impaired Recreational Activities, Increased Edema,Lymphedema Present,Subjective C/O Pain, Impaired Self Care/Self Management Prognosis Rehab Potential Good Clinical Impression Consistent with Diagnosis Yes Short Term Goals Number of Weeks 4 Decrease Lymphedema Yes Patient to Understand Lymphedema Yes Treatment and Exercises Decrease Girth Measurments by (cm) Yes: by 10 cm Alf Goals Number of Weeks 8 Decrease Lymphedema Yes Patient to be Ind w/ HEP Yes Patient to be Ind w/ [place] Yes Compression Garments Patient to Adhere Lymphedema Precautions Yes Decrease Girth Measurments by (cm) Yes: by 20 cm Outpatient Therapy Plan of Care Treatment Plan May Include Therapeutic Exercise Including Home Yes Exercise Program Manual Therapy Techniques Yes Neuromuscular Re-education Yes Therapeutic
== END 2020-03-05 11:49 | disposition home or self-care (01) ==
LOC: PT 11:00
PROVIDERS: PCP Internal Medicine Adolescent Medicine; Visit Provider Internal Medicine Adolescent Medicine
DX: M79.601 Pain in right arm (principal); I89.0 Lymphedema, not elsewhere classified
CPT/HCPCS: 97110; 97140; 97162

== ENCOUNTER → 2020-07-07 11:21 | Outpatient (CLI) | payer MEDICARE, OTHER, SELFPAY ==
[2020-07-07 11:56] LABS: Basophils % 0.6 % (0.1-2.0); Eosinophils # 0.1 K/mm3 (0.0-0.4); Eosinophils % 1.9 % (0.1-12.0); Hematocrit 46.9 % (37.0-47.0); Hemoglobin 15.1 g/dL (12.2-16.2); Lymphocytes # 1.7 K/mm3 (0.7-4.5); Lymphocytes % 26.7 % (10-50); Mean Corpuscular HGB Conc 32.2 g/dL (31.8-35.4); Mean Corpuscular Hemoglobin 28.6 pg (27.0-31.2); Mean Corpuscular Volume 88.8 fl (81-99); Mean Platelet Volume 7.2 fl (7.4-10.4); Monocytes # 0.3 K/mm3 (0.1-1.0); Monocytes % 4.6 % (1.7-9.3); Neutrophils # 4.2 K/mm3 (1.8-7.8); Neutrophils % 66.2 % (37.0-80.0); Platelet Count 285 K/mm3 (142-424); Red Blood Count 5.28 M/mm3 (4.20-5.40); Red Cell Distribution Width 14.7 % (11.5-17.5); White Blood Count 6.3 K/mm3 (4.8-10.8)
[2020-07-07 12:43] LABS: Hemoglobin A1C 5.6 % (4.0-6.0)
[2020-07-07 13:29] LABS: Chloride 101 mmol/L (98-107); Potassium 4.4 mmoL/L (3.5-5.1); Sodium 137 mmol/L (136-145)
[2020-07-07 13:31] LABS: Alanine Aminotransferase 17 U/L (12-78); Aspartate Amino Transferase 26 U/L (14-36); Blood Urea Nitrogen 16 mg/dl (7-17); Estimated Glomerular Filt Rate 72 ml/min (>60); GFR (African American) 87 ML/MIN (>60)
[2020-07-07 13:32] LABS: Albumin Level 4.4 g/dl (3.5-5.0); Albumin/Globulin Ratio 1.3 (1.1-1.8); Alkaline Phosphatase 136 U/L (38-126); Anion Gap 11.4 mEq/L (5-15); Bilirubin,Total 0.6 mg/dl (0.2-1.3); Calcium 10.3 mg/dl (8.4-10.2); Carbon Dioxide 29 mmol/L (22.0-30.0); Chol/HDL Ratio 2.3 (1-3.5); Cholesterol 185 mg/dl (140-200); Globulin 3.4 g/dL (1.3-3.2); Glucose 108 mg/dl (74-100); HDL Cholesterol 79 mg/dl (40-60); Total Protein,Serum 7.8 g/dl (6.3-8.2); Triglycerides 114 mg/dl (30-150); VLDL Cholesterol 23 mg/dL (0-40)
[2020-07-07 13:44] LABS: Direct LDL Cholesterol 72.81 mg/dL (100-129)
== END ==
PROVIDERS: Visit Provider Internal Medicine Adolescent Medicine
DX: I10 Essential (primary) hypertension (principal); R73.03 Prediabetes
CPT/HCPCS: 36415; 80053; 80061; 83036; 85025

== ENCOUNTER 2021-06-14 09:28 | Emergency (ER) | payer MEDICARE, OTHER, SELFPAY ==
[2021-06-14 10:30] VITALS: BP 136/79; PULSE 86; RESP 18; TEMP 37.1; O2SAT 96; BMI 36.4
--- NOTE | 2021-06-14 10:45 | XR_ITS ---
PROCEDURE: XR CHEST 2V CLINICAL HISTORY: CHEST CONGESTION AND COUGH COMPARISON: No exams were available for comparison FINDINGS: The cardiomediastinal silhouette and pulmonary vascularity are within normal limits. The lungs are clear without infiltrates, suspicious nodules, or pleural effusions. There is mild biapical pleural thickening. There is a small metallic density along the anterior chest wall on the. Prior surgery to the right humerus. No acute bony findings. IMPRESSION: No acute findings. Dictated by: Fernando Brar MD 06/14/2021 11:10 Fernando Brar MD in [place] 06/14/2021 11:10
--- NOTE | 2021-06-14 10:55 | HMH.EDUTC ---
[facility] [place] Clinical Impression: Bronchitis Sinusitis Qualifiers: Sinusitis location: unspecified location Chronicity: unspecified Qualified Code(s): J32.9 - Chronic sinusitis, unspecified Disposition: Home, Self-Care Condition on Discharge: Good Instructions: Sinusitis, DI for Sinusitis Additional Instructions: ? Start antibiotic today. Be sure to complete entire prescription even if feeling better ? Monitor temp. Tylenol every 4 hours as needed and / or ibuprofen every 6 hours as needed ( As long as your primary care physician has told you that it ok to take both. For fever/aches/pains ER if no less than 101 despite Tylenol or Motrin ? Humidifier/vaporizer or hot steamy shower ? Inhaler every 4-6 hours as needed like we discussed. If unsure how to use it, ask pharmacist to demonstrate how. Should help open airways and improve cough, wheezing, and shortness of breath ?*Tessalon Perles will not cause drowsiness but use at bedtime to help stop cough so that you may get some rest. *Start steroid today. Helps with inflammation therefore, cough and wheezing. Follow directions on the package. Reviewed side effects. Patient reports taking them before. Follow up IMMEDIATELY for new or worsening of symptoms OR no noticeable improvement over the next 48-72 hours. 911 immediately for any life threatening symptoms such as chest pain or difficulty breathing Prescriptions: Benzonatate [Benzonatate 100mg cap] 100 mg PO Q8HP PRN #15 cap PRN Reason: Cough Transmission Status: Received by [employer] predniSONE [Deltasone 10mg tablet] 10 mg PO BID 5 Days #10 tab Transmission Status: Received by [employer] Azithromycin [Z-Layton 250mg Tab] 250 mg PO DIRECTED #6 tab Transmission Status: Received by [employer] Referrals: Brian Zabala MD [Primary Care Provider] - As needed Time of Disposition: 11:24 Medical Decision Making - [place] Inquiry Pt receiving controlled substance: No [place] was queried for this patient: No Vital Signs: 06/14/21 10:30 06/14/21 11:31 Temperature 98.7 F 98.7 F Temperature Source Oral Pulse Rate 86 Pulse Rate [Right Brachial] 86 Respiratory Rate 18 18 Blood Pressure 136/79 Blood Pressure [Right Arm] 136/79 Blood Pressure Mean [Right Arm] 98 Blood Pressure Source [Right Arm] Automatic Cuff Blood Pressure Position [Right Arm] Sitting 02 Sat by Pulse Oximetry 96 Oxygen Delivery Method Room Air - Lab Data Lab results reviewed: Yes: I reviewed the patient's lab results. - Radiology Data #1 Image Reviewed: Yes I have reviewed radiologist's interpretation No acute findings. Medical Decision Narrative: Patient states that she has taken azithromycin and prednisone in the past without complications and was aware of blood sugars may elevate while on Prednisione but should return to normal [facility] [place] - General Stated complaint: cough, h/a, congestion Time Seen by Provider: 06/14/21 10:55 Mode of Arrival: Ambulatory Source of Information: Patient Limitations: No Limitations Description of Symptoms (Recalled from Triage Doc. by RN): PATIENT C/O COUGH, CHEST CONGESTION, HEADACHE AND DECREASED APPETITE SINCE MONDAY HEENT Symptoms (Recalled from RN notes): Yes Resp Symptoms (Recalled from RN notes): Yes Skin Symptoms (Recalled from RN notes): No MS Symptoms (Recalled from RN notes): No Functional Status (Recalled from RN notes): WNL - History of Present Illness Provider Complaint: Patient states that she was tested last week for COVID and it was negative States that she has been having sore scratchy throat, sinus congestion and cough States that cough is worse when she lays down and having drianage in the back of her throat States that last night she felt a little wheezy but not today so she came in to get checked and wanted to get tested again for COVID - Related Data Home Medications Medication Instructions Recorded Confirmed lisinopril 10
[2021-06-14 11:31] VITALS: BP 136/79; PULSE 86; RESP 18; TEMP 37.1; O2SAT 96
== END 2021-06-14 11:36 | disposition home or self-care (01) ==
PROVIDERS: Emergency Provider Nurse Practitioner; PCP Internal Medicine Adolescent Medicine
DX: J20.9 Acute bronchitis, unspecified (principal); J32.9 Chronic sinusitis, unspecified; I10 Essential (primary) hypertension; Z20.822 Contact with and (suspected) exposure to COVID-19
CPT/HCPCS: G0463; 71046; 99202; C9803; U0003; U0005

== ENCOUNTER → 2021-07-10 10:48 | Outpatient (CLI) | payer MEDICARE, OTHER, SELFPAY | PROVIDERS: PCP Internal Medicine Adolescent Medicine; Visit Provider Surgery | DX: Z01.812 Encounter for preprocedural laboratory examination (principal); Z11.52 Encounter for screening for COVID-19; Z12.11 Encounter for screening for malignant neoplasm of colon | CPT/HCPCS: C9803; U0003; U0005 ==

== ENCOUNTER 2021-07-13 06:25 | Day surgery (SDC) | payer MEDICARE, OTHER, SELFPAY ==
[2021-07-08 12:27] VITALS: BMI 33.9
[2021-07-13 06:46] VITALS: BP 123/62; PULSE 60; RESP 18; TEMP 36.7; O2SAT 96
--- NOTE | 2021-07-13 07:08 | HMH.ANESCL ---
[facility] Anesthesia Checklist - Patient Identification Patient Identification: Arm Band - Structural Data Admitted From: Home Planned Operative Procedure/s: Colonoscopy - NPO Status Verified Time NPO: 03:00 (Prep) - Additional verifications Anesthesia Reactions: No - Airway Assessment C-Spine Mobility Assessed: Yes TMJ Mobility Assessed: Yes Dentition: Good Dentition - Neurological Assessment Level of Consciousness: Awake Hx Seizures: No Numbness or tingling in extremities: No - Anesthesia Plan Anesthesia Risk discussed: Yes Anesthesia Plan: Verified ASA Class: II Anesthesia Type: [facility] History I have reviewed the patient's past medical history: Yes Medical History: Reports:: Cancer (breast), Hypertension Denies:: Diabetes Mellitus Type 1, Diabetes Mellitus Type 2, Internal Pacemaker, MRSA, Seizures *Have you ever received a pneumonia vaccine?: No *Have you received a flu vaccine this season?: Yes Anesthesia experience/problems:: None Laterality Cases: Right: Arthroscopy Shoulder, Bilateral: Lumpectomy, Mastectomy Other Surgeries: Yes: Appendectomy, Cancer Surgery, Colonoscopy, . No: Pacemaker Amputation: No Fractures: No - *Social History Last grade of school completed: High school graduate Smoking Status: Former smoker Alcohol Intake: current Alcohol Intake Frequency:: a few times a week Substance Use Type: denies use *Occupational Status:: retired Housing: house Household Members: spouse, children *Travel in the last 8 weeks: None Family Hx:: Cancer
[2021-07-13 07:18] VITALS: O2SAT 96
--- NOTE | 2021-07-13 07:51 | HMH.SCOPE ---
- Procedure: Date: 07/13/21 Patient Date of :: 1955 Procedure Performed:: Colonoscopy Indications:: Screening Performing Provider:: Dayron Fuentes MD Referring Provider:: . Sedation:: Monitored anesthesia care Procedure:: After informed consent was obtained the patient was taken to the endoscopy suite. Sedation ensued after the patient was transferred to the left lateral decubitus position. Pulse, blood pressure, and oxygen saturation were monitored throughout the procedure. Digital rectal exam revealed no significant abnormality. The colonoscope was placed in position. The entire colon was evaluated. The colonoscope was carefully removed and the patient was transferred to recovery in stable condition. Please see findings and specimens below for detail. Findings:: Bowel preparation fair to moderate Fairly severe lack of relaxation Mild hemorrhoidal cushions Scattered sigmoid diverticulosis Specimens:: None Recommendations:: Repeat colonoscopy in 3 years secondary to fairly severe lack of relaxation. Complications:: No immediate Estimated blood obtained (mL): 0
[2021-07-13 07:52] VITALS: BP 120/69; PULSE 79; RESP 14; TEMP 36.2; O2SAT 93
[2021-07-13 08:02] VITALS: BP 117/60; PULSE 70; RESP 18; O2SAT 96
[2021-07-13 08:12] VITALS: BP 122/73; PULSE 67; RESP 18; O2SAT 96
[2021-07-13 08:22] VITALS: BP 112/68; PULSE 67; RESP 16; O2SAT 98
[2022-03-24 10:56] LABS: POC Glucose,Bedside 103 (70-110)
== END 2021-07-13 08:22 | disposition home or self-care (01) ==
LOC: OUTP 06:26
PROVIDERS: PCP Internal Medicine Adolescent Medicine; Visit Provider Surgery
PROC: 0DJD8ZZ Inspection of Lower Intestinal Tract, Via Natural or Artificial Opening Endoscopic (ICD-10-PCS; principal; 2021-07-13 07:30)
DX: Z12.11 Encounter for screening for malignant neoplasm of colon (principal); K57.32 Diverticulitis of large intestine without perforation or abscess without bleeding; K64.0 First degree hemorrhoids; K58.9 Irritable bowel syndrome, unspecified
CPT/HCPCS: G0121; 82962; J2704

== ENCOUNTER → 2021-07-16 12:04 | Outpatient (CLI) | payer MEDICARE, OTHER, SELFPAY ==
[2021-07-16 13:02] LABS: Basophils % 0.5 % (0.1-2.0); Eosinophils # 0.1 K/mm3 (0.0-0.4); Eosinophils % 1.8 % (0.1-12.0); Hematocrit 49.7 % (37.0-47.0); Hemoglobin 15.4 g/dL (12.2-16.2); Lymphocytes # 1.9 K/mm3 (0.7-4.5); Lymphocytes % 27.9 % (10-50); Mean Corpuscular Hemoglobin 28.7 pg (27.0-31.2); Mean Corpuscular Volume 92.5 fl (81-99); Mean Platelet Volume 7.6 fl (7.4-10.4); Monocytes # 0.3 K/mm3 (0.1-1.0); Monocytes % 4.3 % (1.7-9.3); Neutrophils # 4.4 K/mm3 (1.8-7.8); Neutrophils % 65.4 % (37.0-80.0); Platelet Count 306 K/mm3 (142-424); Red Blood Count 5.37 M/mm3 (4.20-5.40); Red Cell Distribution Width 14.4 % (11.5-17.5); White Blood Count 6.8 K/mm3 (4.8-10.8)
[2021-07-16 13:39] LABS: Alanine Aminotransferase 18 U/L (12-78); Albumin Level 4.4 g/dl (3.5-5.0); Albumin/Globulin Ratio 1.5 (1.1-1.8); Alkaline Phosphatase 119 U/L (38-126); Anion Gap 8.4 mEq/L (5-15); Aspartate Amino Transferase 30 U/L (14-36); Bilirubin,Total 0.4 mg/dl (0.2-1.3); Blood Urea Nitrogen 14 mg/dl (7-17); Calcium 9.5 mg/dl (8.4-10.2); Carbon Dioxide 31 mmol/L (22.0-30.0); Chloride 100 mmol/L (98-107); Chol/HDL Ratio 2.7 (1-3.5); Cholesterol 182 mg/dl (140-200); Estimated Glomerular Filt Rate 55 ml/min (>60); GFR (African American) 67 ML/MIN (>60); Globulin 2.9 g/dL (1.3-3.2); Glucose 93 mg/dl (74-100); HDL Cholesterol 67 mg/dl (40-60); Potassium 4.4 mmoL/L (3.5-5.1); Sodium 135 mmol/L (136-145); Total Protein,Serum 7.3 g/dl (6.3-8.2); Triglycerides 107 mg/dl (30-150); VLDL Cholesterol 21 mg/dL (0-40)
[2021-07-16 13:50] LABS: Direct LDL Cholesterol 85.23 mg/dL (100-129)
[2021-07-16 14:11] LABS: Hemoglobin A1C 5.6 % (4.0-6.0)
[2021-07-17 09:34] LABS: Hepatitis C Antibody <0.1 s/co ratio (0.0-0.9)
== END ==
PROVIDERS: PCP Internal Medicine Adolescent Medicine; Visit Provider Internal Medicine Adolescent Medicine
DX: Z00.00 Encounter for general adult medical examination without abnormal findings (principal); E11.9 Type 2 diabetes mellitus without complications; I10 Essential (primary) hypertension; R87.610 Atypical squamous cells of undetermined significance on cytologic smear of cervix (ASC-US); Z79.84 Long term (current) use of oral hypoglycemic drugs
CPT/HCPCS: 36415; 80053; 80061; 83036; 85025; 87380; C9803; U0003; U0005

== ENCOUNTER → 2021-08-06 09:17 | Outpatient (CLI) | payer MEDICARE, OTHER, SELFPAY ==
--- NOTE | 2021-08-06 09:22 | XR_ITS ---
FINAL REPORT TECHNIQUE: Bone densitometry calculations of the lumbar spine and left hip were obtained. CLINICAL HISTORY: . post menopausal FINDINGS: Using L1-4, the bone mineral density of the spine is 1.034 g/cm2, corresponding to T-score of 0.1. Using the left hip, the bone mineral density of the femoral neck is 0.829 g/cm2, corresponding to a T-score of -0.2. IMPRESSION: Normal bone mineral density of the lumbar spine and hip. Reviewed, Interpreted and Dictated by Moo Ogden III, MD Transcribed by Lorenza Sparks Authenticated by Moo Ogden III, MD on 08/06/2021 11:04:37 AM [facility]
== END ==
PROVIDERS: PCP Internal Medicine Adolescent Medicine; Visit Provider Internal Medicine Adolescent Medicine
DX: Z13.820 Encounter for screening for osteoporosis (principal); Z78.0 Asymptomatic menopausal state
CPT/HCPCS: 77080

== ENCOUNTER → 2022-07-21 11:23 | Outpatient (CLI) | payer MEDICARE, OTHER, SELFPAY ==
[2022-07-21 12:39] LABS: Hemoglobin A1C 5.6 % (4.0-6.0)
[2022-07-21 12:41] LABS: Alanine Aminotransferase 20 U/L (12-78); Albumin Level 4.4 g/dl (3.5-5.0); Albumin/Globulin Ratio 1.3 (1.1-1.8); Alkaline Phosphatase 129 U/L (38-126); Anion Gap 9.3 mEq/L (5-15); Aspartate Amino Transferase 29 U/L (14-36); Bilirubin,Total 0.6 mg/dl (0.2-1.3); Blood Urea Nitrogen 18 mg/dl (7-17); Calcium 9.8 mg/dl (8.4-10.2); Carbon Dioxide 33 mmol/L (22.0-30.0); Chloride 101 mmol/L (98-107); Chol/HDL Ratio 2.7 (1-3.5); Cholesterol 176 mg/dl (140-200); Estimated Glomerular Filt Rate 62 ml/min (>60); GFR (African American) 75 ML/MIN (>60); Globulin 3.3 g/dL (1.3-3.2); Glucose 98 mg/dl (74-100); HDL Cholesterol 65 mg/dl (40-60); Potassium 4.3 mmoL/L (3.5-5.1); Sodium 139 mmol/L (136-145); Total Protein,Serum 7.7 g/dl (6.3-8.2); Triglycerides 92 mg/dl (30-150); VLDL Cholesterol 18 mg/dL (0-40)
[2022-07-21 12:51] LABS: Direct LDL Cholesterol 73.18 mg/dL (100-129)
== END ==
PROVIDERS: PCP Nurse Practitioner Family; Visit Provider Nurse Practitioner Family
DX: E11.9 Type 2 diabetes mellitus without complications (principal); Z79.84 Long term (current) use of oral hypoglycemic drugs
CPT/HCPCS: 36415; 80053; 80061; 83036

== ENCOUNTER → 2022-09-06 12:52 | Outpatient (POV) | payer MEDICARE, OTHER, SELFPAY | PROVIDERS: Visit Provider Dermatology | DX: Z00.00 Encounter for general adult medical examination without abnormal findings (principal) ==

== ENCOUNTER → 2023-03-18 10:28 | Outpatient (CLI) | payer MEDICARE, OTHER, SELFPAY ==
[2023-03-18 11:18] LABS: Basophils # 0.1 K/mm3 (0-0.2); Basophils % 0.7 % (0.1-2.0); Eosinophils # 0.2 K/mm3 (0.0-0.4); Hematocrit 49.7 % (37.0-47.0); Hemoglobin 15.3 g/dL (12.2-16.2); Lymphocytes # 1.8 K/mm3 (0.7-4.5); Lymphocytes % 24.6 % (10-50); Mean Corpuscular HGB Conc 30.8 g/dL (31.8-35.4); Mean Corpuscular Hemoglobin 27.4 pg (27.0-31.2); Mean Corpuscular Volume 88.9 fl (81-99); Mean Platelet Volume 7.9 fl (7.4-10.4); Monocytes # 0.4 K/mm3 (0.1-1.0); Monocytes % 4.8 % (1.7-9.3); Neutrophils # 5.1 K/mm3 (1.8-7.8); Platelet Count 299 K/mm3 (142-424); Red Blood Count 5.59 M/mm3 (4.20-5.40); Red Cell Distribution Width 14.6 % (11.5-17.5); White Blood Count 7.5 K/mm3 (4.8-10.8)
[2023-03-18 11:41] LABS: Hemoglobin A1C 5.4 % (4.0-6.0)
[2023-03-18 12:48] LABS: Chloride 99 mmol/L (98-107)
[2023-03-18 12:49] LABS: Potassium 4.2 mmoL/L (3.5-5.1); Sodium 136 mmol/L (136-145)
[2023-03-18 12:51] LABS: Alanine Aminotransferase 21 U/L (12-78); Aspartate Amino Transferase 27 U/L (14-36); Blood Urea Nitrogen 17 mg/dl (7-17); Estimated Glomerular Filt Rate 71 ml/min (>60); GFR (African American) 86 ML/MIN (>60)
[2023-03-18 12:52] LABS: Albumin/Globulin Ratio 1.3 (1.1-1.8); Alkaline Phosphatase 105 U/L (38-126); Anion Gap 8.2 mEq/L (5-15); Bilirubin,Total 0.7 mg/dl (0.2-1.3); Calcium 9.1 mg/dl (8.4-10.2); Carbon Dioxide 33 mmol/L (22.0-30.0); Chol/HDL Ratio 2.7 (1-3.5); Cholesterol 169 mg/dl (140-200); Globulin 3.2 g/dL (1.3-3.2); Glucose 94 mg/dl (74-100); HDL Cholesterol 63 mg/dl (40-60); Total Protein,Serum 7.2 g/dl (6.3-8.2); Triglycerides 81 mg/dl (30-150); VLDL Cholesterol 16 mg/dL (0-40)
[2023-03-18 13:03] LABS: Direct LDL Cholesterol 73.23 mg/dL (100-129)
== END ==
PROVIDERS: PCP Internal Medicine Adolescent Medicine; Visit Provider Nurse Practitioner Family
DX: E11.9 Type 2 diabetes mellitus without complications (principal); Z79.84 Long term (current) use of oral hypoglycemic drugs; Z85.3 Personal history of malignant neoplasm of breast
CPT/HCPCS: 36415; 80053; 80061; 83036; 85025

== ENCOUNTER 2024-05-14 11:00 | Outpatient (POV) | payer MEDICARE, OTHER, SELFPAY | END 2024-05-14 23:59 | disposition home or self-care (01) | LOC: SC 05-15 06:50 | PROVIDERS: Visit Provider Dermatology | DX: Z00.00 Encounter for general adult medical examination without abnormal findings (principal) ==

== ENCOUNTER 2024-10-31 08:50 | Outpatient (CLI) | payer MEDICARE, OTHER, SELFPAY ==
--- NOTE | 2024-10-31 09:21 | XR_ITS ---
FINAL REPORT TECHNIQUE: Bone densitometry calculations of the lumbar spine and left hip were obtained. CLINICAL HISTORY: SCREENING COMPARISON: 08/06/2021 FINDINGS: Using L1-4, the bone mineral density of the spine is 1.067 g/cm2, corresponding to T-score of 0.2 and a Z score of 2.3. This is within the range of normal limits. Previously this was 1.034 with a T-score of-0.1 and a Z-score of 1.8. Using the left hip, the bone mineral density of the total hip is 0.865 g/cm2, corresponding to a T-score of -0.6 and a Z-score of 0.9. This is within the range of normal limits. Previously this was 0.829 with a T-score of-0.2 and a Z-score of 1.4. FRAX 10 year fracture risk is 0.6% for a hip fracture and 11% for a major osteoporotic fracture. NOTE: T-score: Standard deviation compared with peak bone mass of young adult mean. *Following the recommendations of the International Society of Bone densitometry, classification of hip BMD is based on the lower of two T-scores; total hip or femoral neck. IMPRESSION: 1. Bone mineral density of the lumbar spine within the range of normal limits. 2. Bone mineral density of the left femoral neck within the range of normal limits. Reviewed, Interpreted and Dictated by Jimena Cochran MD Transcribed by Mimi Campos Authenticated and [facility]
== END 2024-10-31 23:59 | disposition home or self-care (01) ==
LOC: RAD 08:52
PROVIDERS: PCP Nurse Practitioner Family; Visit Provider Nurse Practitioner Family
DX: Z78.0 Asymptomatic menopausal state (principal)
CPT/HCPCS: 77080